=== PATIENT | male | born 1985 | race American Indian/Alaskan Native ===

== ENCOUNTER 2018-03-14 15:01 | Emergency (ER) | payer SELFPAY ==
[2018-03-14 15:29] VITALS: BP 131/74
[2018-03-14] MEDS ORDERED: XYLOCAINE 1% MPF 5 mL INFILTRATI ONE (17:32)
[2018-03-14] MEDS ORDERED: ROCEPHIN IM ONE (17:32)
[2018-03-14] MEDS ORDERED: ZITHROMAX PO ONE (17:32)
--- NOTE | 2018-03-14 17:35 | Emergency Department Report ---
ED Male HPI - General Chief complaint: Urogenital-Male Stated complaint: BURNING WITH URINATION/DISCHARGE Time Seen by Provider: 03/14/18 17:34 Source: patient Mode of arrival: Ambulatory Limitations: No Limitations - History of Present Illness Initial comments: 32-year-old male presents to emergency department with a one to two-day history of some dysuria and penile discharge. He has a history of gonorrhea in the past and says that he recently had intercourse with the same female who gave him the STD previously. He has not taken anything for symptoms. This is been ongoing for the last 3 days. He denies any lesions or any testicular or penile discomfort. Pain is 0-10. MD Complaint: penile discharge, dysuria Onset/Timin -: days(s) Severity scale (0 -10): 0 Quality: burning (on urinating none at present) Consistency: intermittent Improves with: other (after urinating and) Worsens with: urination new sexual partner (report STD from partner that he had gotten STD from in the past.) discharge, dysuria. denies: swelling, mass, rash, urinary retention, blood in urine, fever, nausea/vomiting, incontinence - Related Data Sexually active: Yes (unsafe sex) Previous Rx's Medication Instructions Recorded Last Taken Type Ciprofloxacin HCl [Ciprofloxacin 500 mg PO Q12H 10 Days #20 tab 03/14/18 Unknown Rx TAB] Allergies Allergy/AdvReac Type Severity Reaction Status Date / Time No Known Allergies Allergy Unverified 03/14/18 15:29 ED Review of Systems ROS: Stated complaint: BURNING WITH URINATION/DISCHARGE Other details as noted in HPI Constitutional: denies: chills, fever ENT: denies: throat pain Respiratory: denies: cough, shortness of breath, wheezing Cardiovascular: denies: chest pain, palpitations Gastrointestinal: denies: abdominal pain, nausea, vomiting, diarrhea Genitourinary: dysuria, discharge. denies: urgency, frequency, hematuria, testicular pain, testicular mass Musculoskeletal: denies: back pain, arthralgia Skin: denies: rash, lesions Neurological: denies: headache ED Past Medical Hx - Past Medical History Previous Medical History?: Yes Additional medical history: H/O STD - Surgical History Past Surgical History?: No - Family History Family history: no significant - Social History Smoking Status: Current Every Day Smoker Substance Use Type: Marijuana - Medications Home Medications: Home Medications Medication Instructions Recorded Confirmed Last Taken Type Ciprofloxacin HCl [Ciprofloxacin 500 mg PO Q12H 10 Days #20 tab 03/14/18 Unknown Rx TAB] ED Physical Exam - General Limitations: No Limitations General appearance: alert, in no apparent distress - Head Head exam: Present: atraumatic, normocephalic - Eye Eye exam: Present: normal appearance, PERRL. Absent: conjunctival injection - ENT ENT exam: Present: normal exam, normal orophraynx, mucous membranes moist - Neck Neck exam: Present: normal inspection, full ROM. Absent: tenderness, lymphadenopathy - Respiratory Respiratory exam: Present: normal lung sounds bilaterally. Absent: respiratory distress - Cardiovascular Cardiovascular Exam: Present: regular rate, normal rhythm, normal heart sounds - GI/Abdominal GI/Abdominal exam: Present: soft, normal bowel sounds. Absent: tenderness, rigid - Extremities Exam Extremities exam: Present: normal inspection, full ROM, normal capillary refill. Absent: tenderness, pedal edema, joint swelling - Back Exam Back exam: Present: normal inspection, full ROM. Absent: tenderness, CVA tenderness (R), CVA tenderness (L) - Neurological Exam Neurological exam: Present: alert, oriented X3, normal gait - Psychiatric Psychiatric exam: Present: normal affect, normal mood - Skin Skin exam: Present: warm, dry, intact, normal color. Absent: rash ED Course Vital Signs 03/14/18 15:27 Temperature 98.6 F Pulse Rate 68 Respiratory 16 Rate Blood Pressure 131/74 100% on RA - Reevaluation(s) Reevaluation #1: 03/14/18 17:56 Patient treated for gonorrhea and chlamydia based on complaints of penile discharge and burning and similar episode in the past. He was seen by Dr. Bradley who ordered Rocephin 250 mg IM and azithromycin 1 g by mouth .urine collected and sent and awaiting results. No adverse reaction from medication Reevaluation #2: 03/14/18 19:01 Patient positive for urinary tract infection and I discussed with him treatment plan and he will be placed on ciprofloxacin prescription. He stable ED Medical Decision Making - Lab Data Lab Results 03/14/18 Range/Units 17:57 Urine Color Yellow (Yellow) Urine Turbidity Hazy (Clear) Urine pH 6.0 (5.0-7.0) Ur Specific [place] 1.019 (1.003-1.030) Urine Protein <15 mg/dl (Negative) mg/dL Urine Glucose (UA) Neg (Negative) mg/dL Urine Ketones Neg (Negative) mg/dL Urine Blood Neg (Negative) Urine Nitrite Neg (Negative) Urine Bilirubin Neg (Negative) Urine Urobilinogen < 2.0 (<2.0) mg/dL Ur Leukocyte Esterase Lg (Negative) Urine WBC (Auto) > 182.0 H (0.0-6.0) /HPF Urine RBC (Auto) 17.0 (0.0-6.0) /HPF U Epithel Cells (Auto) < 1.0 (0-13.0) /HPF Urine Mucus 2+ /HPF Urine culture sent and pending - Medical Decision Making ED course: Diagnosis: 1:Penile discharge-empirically treated for STD and emergency room. Male concerned for STD Exposure Patient requested treatment for STD and was treated empirically for gonorrhea and Avandia with Rocephin 250 mg and is to rest 1 g without any adverse reaction. -Instructed to inform partner that he was treated for STD and emergency room and to practice safe sex. [id number] results reflect white count of greater than 182 and urine, large amount of leukocyte Estrace, urine culture sent and pending 3-Acute cystitis without hematuria-patient will be placed on ciprofloxacin and sent home. Patient is stable and I gave him information regarding STD and also instructed them that he has urinary tract infection and will be placed on antibiotic. Patient voiced understanding of need to follow-up for repeat STD test then in 7- 10 days at [facility] and also the need to practice safe sex and to take ciprofloxacin as prescribed for urinary tract infection. Critical care attestation.: If time is entered above; I have spent that time in minutes in the direct care of this critically ill patient, excluding procedure time. ED Disposition Clinical Impression: Concern about STD in male without diagnosis, Abnormal penile discharge, Dysuria Disposition: DC-01 TO HOME OR SELFCARE Is pt being admited?: No Does the pt Need Aspirin: No Condition: Stable Instructions: Sexually Transmitted Diseases (ED), Safe Sex (ED), Dysuria (ED) Additional Instructions: Please refrain from having sexual activity with your partner until she gets treatment for STD You were treated for gonorrhea and Chlamydia in emergency room today. Please do not have any sexual activity for the next 2 weeks and please follow up at [facility] or [facility] for recheck in 7 -10 days Practice safe sex. Prescriptions: Ciprofloxacin HCl [Ciprofloxacin TAB] 500 mg PO Q12H 10 Days #20 tab Referrals: [facility] [Outside] - 7-10 days [facility] [Outside] - 7-10 days Forms: Work/School Release Form(ED)
--- NOTE | 2018-03-14 17:40 | Emergency Department Report ---
Chief Complaint: Urogenital-Male Stated Complaint: BURNING WITH URINATION/DISCHARGE Time Seen by Provider: 03/14/18 17:34 - HPI History of Present Illness: 32-year-old male presents to emergency department with a one to two-day history of some dysuria and penile discharge. He has a history of gonorrhea in the past and says that he recently had intercourse with the same female who gave him the STD previously. He has not taken anything for symptoms. He denies any lesions or any testicular or penile discomfort. - ROS Review of Systems: Positive for dysuria and penile discharge Negative for nausea, vomiting, fever, abdominal pain, rash - Exam Vital Signs: Vital Signs 03/14/18 15:27 Temperature 98.6 F Pulse Rate 68 Respiratory 16 Rate Blood Pressure 131/74 Physical Exam: Patient is awake and alert in no acute distress. No acute abnormalities. Heart and lung sounds are normal to auscultation. MSE screening note: Focused history and physical exam performed. Due to findings the following was ordered: He has been treated empirically with Rocephin and azithromycin. We will obtain a urinalysis secondary to the dysuria. ED Disposition for MSE Condition: Stable Referrals: PRIMARY CARE [Primary Care Provider] - 3-5 Days
[2018-03-14 18:32] LABS: Bilirubin,Urine NEG (Negative); Blood,Urine NEG (Negative); Color,Urine Yellow (Yellow); Mucus,Urine 2+ /HPF; Protein,Urine <15 mg/dL mg/dL (Negative); Urobilinogen,Urine < 2.0 mg/dL (<2.0); WBC,Urine > 182.0 /HPF (0.0-6.0)
== END 2018-03-14 19:13 | disposition home or self-care (01) ==
LOC: ED 15:01
DX: R36.9 Urethral discharge, unspecified (principal); R30.0 Dysuria; F17.200 Nicotine dependence, unspecified, uncomplicated; F12.10 Cannabis abuse, uncomplicated
CPT/HCPCS: 81001; 87086; 96372; 99282; J0696